=== PATIENT | male | born 1980 | race Caucasian/White ===

== ENCOUNTER → 2017-08-11 | Outpatient (CLI) | payer OTHER ==
[2017-08-11 12:14] LABS: HCT 46.3 % (39.0-53.0); HGB 15.1 gm/dL (13.0-17.5); MCH 31.4 pg (25.0-35.0); MCHC 32.6 g/dL (31.0-37.0); MCV 96.4 fL (80.0-100.0); Mean Platelet Volume 7.2; Platelet Count 243 k/uL (150-450); RDW 13.9 % (11.5-15.5); WBC 8.1 k/uL (3.8-10.6)
[2017-08-11 13:26] LABS: Erythrocyte Sedimentation Rate 2 mm/hr (0-15)
[2017-08-11 13:45] LABS: ALT 52 U/L (21-72); AST 27 U/L (17-59); Albumin 4.2 g/dL (3.5-5.0); Alkaline Phosphatase 80 U/L (38-126); Anion Gap 7 mmol/L; Blood Urea Nitrogen 18 mg/dL (9-20); C Reactive Protein <5.0 mg/L (<10.0); Calcium 9.5 mg/dL (8.4-10.2); Carbon Dioxide 31 mmol/L (22-30); Chloride 104 mmol/L (98-107); Glucose 99 mg/dL (74-99); Potassium 5.4 mmol/L (3.5-5.1); Sodium 142 mmol/L (137-145); Total Bilirubin 0.4 mg/dL (0.2-1.3)
== END | disposition home or self-care (01) ==
LOC: LABWHC1 11:49
DX: K51.90 Ulcerative colitis, unspecified, without complications (principal)
CPT/HCPCS: 36415; 80053; 82542; 82657; 85027; 85652; 86140

== ENCOUNTER 2017-08-31 10:00 | Day surgery (SDC) | payer OTHER ==
[2017-08-29 11:41] VITALS: BMI 31.1
[~2017-08-31 10:00] MED LIST: LACTATED RINGERS 1,000 ML IV SCH
[2017-08-31 10:15] VITALS: RESP 16; TEMP 97.9
[2017-08-31] MEDS ORDERED: PROPOFOL 10 MG/ML 20 ML VIAL IV ONE (11:23)
[2017-08-31 12:04] VITALS: BP 136/68; PULSE 44
--- NOTE | 2017-08-31 12:16 | P.PCN ---
Date of Procedure: 08/31/17 Procedure(s) Performed: Procedure: Colonoscopy and biopsy. Preoperative diagnosis: History of colitis with symptoms despite treatment with colazal. Postoperative diagnoses: 1. Proctosigmoiditis. 2. Rectal polyp consistent with pseudopolyp. 3. Multiple biopsies obtained from the terminal ileum, right colon , sigmoid and rectal polyp. Preparation: HalfLytely prep. Sedation: Was provided by anesthesia. Brief clinical history: The patient is a 36-year-old male who was diagnosed with colitis around 8 years ago. His symptoms have responded to Colazal over the years and there was a time when he was doing well for 2-3 years off any medications. Currently, while on colazal for the last couple years, he continues to have multiple bowel movements, up to 8, every morning and into the early afternoon. His last colonoscopy was around the time of his diagnosis 8 years ago. This evaluation is to assess the extent and activity of his colitis and to guide therapy. Procedure: With the patient on his left lateral decubitus position and after informed consent and adequate sedation, the perianal area was inspected and it did not show any fissures or fistulas. There were no masses felt on digital rectal examination. The Olympus CFQ 160L video colonoscope was then inserted in the rectum in the usual fashion and advanced to the cecum. I intubated the ileocecal valve and examined the terminal ileum. The terminal ileum and most of the colon were not involved. Distal to 40 cm from the anal verge, there was edema, erythema, friability and multiple scattered ulcerations consistent with active proctosigmoiditis colitis but no spontaneous bleeding. In the rectum then was a polypoid area consistent with a pseudopolyp. I obtained biopsies from the terminal ileum right colon sigmoid and the rectal polyp. The patient tolerated the procedure well. Plan: I summarized the findings to the patient. Will await pathology results. I will see him in follow-up in the office, and since his symptoms are persistent despite current therapy, I would consider immunosuppressive therapy before offering Biologics at this point. I will keep you updated on his progress.
== END 2017-08-31 13:03 | disposition home or self-care (01) ==
LOC: ORWHC2ENDO 10:00
DX: K51.30 Ulcerative (chronic) rectosigmoiditis without complications (principal); K62.1 Rectal polyp; Z79.899 Other long term (current) drug therapy
CPT/HCPCS: 45380; J2704; 88305

== ENCOUNTER → 2017-10-24 | Outpatient (CLI) | payer OTHER ==
[2017-10-24 16:00] LABS: HCT 43.4 % (39.0-53.0); HGB 14.3 gm/dL (13.0-17.5); MCH 30.8 pg (25.0-35.0); MCHC 32.9 g/dL (31.0-37.0); MCV 93.9 fL (80.0-100.0); Mean Platelet Volume 6.7; Platelet Count 261 k/uL (150-450); RBC 4.63 m/uL (4.30-5.90); RDW 12.9 % (11.5-15.5); WBC 4.9 k/uL (3.8-10.6)
[2017-10-24 16:20] LABS: ALT 33 U/L (21-72); AST 32 U/L (17-59); Albumin 4.1 g/dL (3.5-5.0); Alkaline Phosphatase 78 U/L (38-126); Amylase 56 U/L (30-110); Anion Gap 15 mmol/L; Blood Urea Nitrogen 19 mg/dL (9-20); Calcium 9.5 mg/dL (8.4-10.2); Carbon Dioxide 25 mmol/L (22-30); Chloride 104 mmol/L (98-107); Glucose 103 mg/dL (74-99); Potassium 4.3 mmol/L (3.5-5.1); Sodium 144 mmol/L (137-145); Total Bilirubin 0.5 mg/dL (0.2-1.3); Total Protein 6.9 g/dL (6.3-8.2)
== END | disposition home or self-care (01) ==
LOC: LABWHC1 15:31
DX: K51.30 Ulcerative (chronic) rectosigmoiditis without complications (principal)
CPT/HCPCS: 36415; 80053; 82150; 85027

== ENCOUNTER 2019-09-06 14:09 | Emergency (ER) | payer OTHER ==
[2019-09-06 14:21] VITALS: RESP 16; TEMP 98
[2019-09-06] MEDS ORDERED: HYDROcodone/APAP 5-325MG 1 EACH TAB PO STA (14:25)
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
[2019-09-06] MEDS ORDERED: traMADol 50 MG STARTER PACK 3 TAB BTL PO STA (15:37)
[2019-09-06 15:54] VITALS: BP 134/86; PULSE 77
== END 2019-09-06 15:53 | disposition home or self-care (01) ==
LOC: EC 14:09
DX: S00.83XA Contusion of other part of head, initial encounter (principal); K51.90 Ulcerative colitis, unspecified, without complications; F17.200 Nicotine dependence, unspecified, uncomplicated; Z79.899 Other long term (current) drug therapy; Z98.890 Other specified postprocedural states; V53.5XXA Driver of pick-up truck or van injured in collision with car, pick-up truck or van in traffic accident, initial encounter; Y92.410 Unspecified street and highway as the place of occurrence of the external cause
CPT/HCPCS: 70110; 99284

== ENCOUNTER 2020-03-08 14:19 | Emergency (ER) | payer OTHER ==
[2020-03-08 14:35] VITALS: BP 136/85; PULSE 80; RESP 18; TEMP 98.2
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
--- NOTE | 2020-03-08 15:13 | XR ---
EXAMINATION TYPE: XR tibia fibula RT DATE OF EXAM: 03/08/2020 COMPARISON: NONE HISTORY: Contusion TECHNIQUE: 3 views FINDINGS: The tibia and fibula appear intact. I see no fracture nor dislocation. Joint spaces are nor mal. IMPRESSION: Negative right tibia and fibula exam. No fracture.
== END 2020-03-08 15:54 | disposition home or self-care (01) ==
LOC: EC 14:19
DX: S80.11XA Contusion of right lower leg, initial encounter (principal); F17.200 Nicotine dependence, unspecified, uncomplicated; W22.8XXA Striking against or struck by other objects, initial encounter
CPT/HCPCS: 99283